=== PATIENT | male | born 1995 | race Caucasian/White ===

== ENCOUNTER 2020-10-01 15:30 | Outpatient (RCR) | payer OTHER, SELFPAY ==
--- NOTE | 2020-04-03 11:02 | ST.OPIE ---
Visit Care Team Role Provider Type Seth Landin MD Attending Provider Non-Staff Primary Care Provider Referring Provider Specialty: Medical Address: [address] [place] [address], [place], [address] Email: Speech-Language Pathology Initial Evaluation SENIOR OFFICER Voice Resonance Evaluation Start: 03/27/20 16:10 Freq: Status: Active Protocol: Document 03/27/20 16:10 IPNA (Rec: 03/27/20 16:11 PINA [id number]) Voice and Resonance Assessment Session Time Visit Start Time 14:30 Visit Stop Time 15:40 Total Visit Minutes 70 Visit Information Visit Number Initial Evaluation Plan of Care Dates 03/27/20 - 06/25/20 Insurance Information Prime Next Note Type Next Note Type Treatment Note Referral Referring Physician Dr. Seth Landin Reason for Referral Laryngospasm Setting Setting Outpatient Care Patient History General Information The pt is a 24-yr-old male with c/o laryngospasm symptoms with associated strong coughing episodes, which have resulted in restrictions from job duties. 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 The pt was diagnosed with acid reflux ~1 yr ago. Since then he has followed a strict GERD diet and recommended lifestyle modifications. He has been seen multiple times by GI, with ~5 endoscopies administered for evaluation and ongoing assessment after various medication trials. He underwent ENT evaluation 2 yrs ago with no abnormal findings . He is currently waiting for referral from GI for re- evaluation with ENT d/t ongoing symptoms. He also intends to have a pH study completed for GERD and has an appointment tomorrow with an Sod Cutter for evaluation of allergies that may contribute to laryngospasm triggers. The pt stated that prior to GERD dx, he drank frequently and chewed tobacco. He has since stopped all tobacco, rarely consumes alcohol, and has lost >20 lbs of weight. He has noticed improvement in but not elimination of symptoms. The pt works out 5-6 days/wk and only occasionally has experienced laryngospasm during high intensity exercise . Other episodes have occurred while brushing his teeth, after eating pizza (during which he was suddenly aphonic but could breathe), and 3x during the night in the last week which caused him to awaken and he was unable to breathe. He estimated that 80% of the spasms occur while he is in his home. In response, the pt drinks water, which alleviates the symptoms. He has never passed out d/t laryngospasm. Hearing Hearing Level Normal Vision Vision Status Not Impaired [place] Langauge Language(s) Spoken in the Home [place] Occupational Status Occupation Status [place] docking pilot Previous Therapy Previous Speech-Language Therapy No Oral Motor Assessment Source: [place] [employer] ([employer]). Oral-Motor Eval Completed No Subjective Subjective The pt arrived on time and provided case history. - Laryngeal Performance Breath Support Breath Support At Rest Thoracic,Clavicular Breath Support Conversation Thoracic,Clavicular Breath Support Conversation Comment Pt reported difficulty filling lungs with deep breath. Feels it's shallow Speaks on Room Air Yes Postural Alignment Stance Balanced Voice Pitch Range Norms: Women (100-300 Hz) Men (70-250 Hz) Fundamental Frequency Norms: Women (Mean: 225 Hz; Range: 155-334 Hz) Men ( Mean: 128 Hz; Range: 85-196 Hz) Voice Pitch Normal Voice Loudness Normal Voice Phonatory-based Quality Normal Paradoxical Vocal Fold Movement Possible Indications Resonance Nasal Resonance Normal Oral Resonance Normal Therapeutic Techniques Therapy Tactics Breath Support Other Tactics Extensive education was provided to the pt RE a&p of laryngeal, pharyngeal and associated structures involved in swallow and breathing; potential impact of frequent coughing/throat clearing and GERD on laryngeal tissue, including VFs and voice; and laryngospasm definition, symptoms, potential triggers, and relaxation and deep breathing techniques to manage /resolve. The pt asked many good questions. Had concerns of feeling unable to take deep diaphragmatic breaths. Training with modeling provided. Initially in pt attempts to perform, clavicular breathing was evident, which slowly shifted to thoracic and finally initial evidence of diaphragm involvement was observed; needs reinforcement. Additional training provided in alternative cough techniques including hard swallow and silent cough. The pt returned demonstration and verbalized understanding. Pt instructed to perform hard swallow at first indication of tickle in throat in order to prevent coughing which may lead to laryngospasm. This should be used in conjunction with deep breathing technique to prevent laryngospasm when possible. It was emphasized, however, that if the pt experiences foreign object in airway, he absolutely should cough as strongly as necessary to expel object and prevent choking or aspiration. He verbalized understanding and agreement. All instructions to techniques were provided in writing for aid in home practice. Findings Findings Mild-Moderate Impairment Voice/Resonance Assessment Assessment The pt's complaints and reported symptoms are consistent with laryngospasm with unconfirmed trigger(s) which could include allergies, effects of GERD/LPR, or other cause of laryngeal hypersensitivity. Will continue to treat with relaxation, breathing and cough techniques and ongoing assessment to, hopefully, determine triggers. Prognosis Rehabilitation Potential Excellent - Recommendations Treatment Recommended Yes Treatment Frequency/Duration 6 visits over 2-3 mos Placement Recommendation Home Short Term Goals 1. The pt will perform alternative cough techniques with min cues to prevent or minimize cough production, thereby reducing risk of laryngospasm. 2. The pt will perform diaphragmatic breathing techniques with min cues to reduce frequency, duration and intensity of laryngospasm. Digital Composer Goals 1. Using alternative cough, laryngeal relaxation, and breathing techniques independently as needed, the pt will reduce laryngospasm to no more than 2 mild episodes over a 1-month period, as measured by pt report and clinician judgment, to improve general health and quality of life and to return pt to normal employment duties. Patient/Caregiver Education Patient/Family Education Described results of evaluation,Patient Understanding,Patient Needs More Info
--- NOTE | 2020-04-15 14:26 | ST.OPTN ---
Visit Care Team Role Provider Type Seth Landin MD Attending Provider Non-Staff Primary Care Provider Referring Provider Address: [address] [place] [address], [id number] [employer] ARMAMENT Treatment Note AIRCRAFT MECHANIC ARMAMENT Treatment Note Start: 03/27/20 16:10 Freq: Status: Active Protocol: Document 04/15/20 14:05 PINA (Rec: 04/15/20 14:05 PINA [id number]) Speech Pathology Treatment Note Session Time Visit Start Time 12:30 Visit Stop Time 13:25 Total Visit Minutes 55 Visit Information Visit Number 1 Plan of Care Dates 03/27/20 - 06/25/20 Insurance Information [facility] Setting Treatment Setting Outpatient Care Visit Type Note Type Treatment Note Next Note Type Next Note Type Treatment Note General Information General Information The pt is a 24-yr-old male with c/o laryngospasm symptoms with associated strong coughing episodes, which have resulted in restrictions from job duties. 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 The pt was diagnosed with acid reflux ~1 yr ago. Since then he has followed a strict GERD diet and recommended lifestyle modifications. He has been seen multiple times by GI, with ~5 endoscopies administered for evaluation and ongoing assessment after various medication trials. He underwent ENT evaluation 2 yrs ago with no abnormal findings . He is currently waiting for referral from GI for re- evaluation with ENT d/t ongoing symptoms. He also intends to have a pH study completed for GERD and has an appointment tomorrow with an Hogshead Cooper for evaluation of allergies that may contribute to laryngospasm triggers. The pt stated that prior to GERD dx, he drank frequently and chewed tobacco. He has since stopped all tobacco, rarely consumes alcohol, and has lost >20 lbs of weight. He has noticed improvement in but not elimination of symptoms. The pt works out 5-6 days/wk and only occasionally has experienced laryngospasm during high intensity exercise . Other episodes have occurred while brushing his teeth, after eating pizza (during which he was suddenly aphonic but could breathe), and 3x during the night in the last week which caused him to awaken and he was unable to breathe. He estimated that 80% of the spasms occur while he is in his home. In response, the pt drinks water, which alleviates the symptoms. He has never passed out d/t laryngospasm. Subjective Observations/Patient Presentation The pt arrived on time. He reported being very busy with multiple medical appts since last visit. Initially practiced exercises for laryngospasm but only for a few days. He was seen by Hogshead Cooper and ENT. Allergy testing revealed allergy to grass only; no food allergies. The pt reported that Hogshead Cooper did not suspect high likelihood of GERD but speculated possible lasting effect of laryngopharyngeal hypersensitivity from previous hx of GERD. Laryngoscopy by ENT was unremarkable with no damage to laryngeal structures or tissue to account for symptoms. CT of sinus was recommended, however, and is pending scheduling. The pt also attempted pH testing and esophageal manometry, but d/t miscommunication about preperatory needs, the appt was canceled and the pt is awaiting rescheduling. The pt reported 1 laryngospasm since last seen; happened during the night and caused him to awaken with difficulty breathing. He also reported a hoarse voice that sometimes breaks, like a stutter but with my voice since having attended a sporting event republican with friends during which he talked a lot and was loud and also consumed a moderate amount of alcohol ( uncarbonated). The pt continues to otherwise follow a strict GERD diet. Chief Complaint(s) Other Additional Areas of Concern Laryngospasm Rehab Expectation/Goals: Patient Goals Eliminate episodes and return to flying duties Patient Knowledge/Awareness of AIRCRAFT MECHANIC ARMAMENT Role Good in Treatment Objective Short Term Goals 1. The pt will perform alternative cough techniques with min cues to prevent or minimize cough production, thereby reducing risk of laryngospasm. 2. The pt will perform diaphragmatic breathing techniques with min cues to reduce frequency, duration and intensity of laryngospasm. Correction Goals 1. Using alternative cough, laryngeal relaxation, and breathing techniques independently as needed, the pt will reduce laryngospasm to no more than 2 mild episodes over a 1-month period, as measured by pt report and clinician judgment, to improve general health and quality of life and to return pt to normal employment duties. Treatment Activities Consulted with pt RE the many medical appts and the few laryngospasm episodes he has had since last seen. The pt expressed frustration at attending various medical appts when he is asymptomatic and asked if he should attempt to elicit GERD symptoms prior next GI appt. AIRCRAFT MECHANIC ARMAMENT expressed understanding of frustration and recommended the pt consult with GI office regarding this question. Alternatively, recommended the pt reintroduce foods/liquids into diet in a controlled manner, taking note of any symptoms that arise after. Discussed keeping a food journal in order to assist him in making educated decisions about if/when to partake of foods/liquids that might contribute to his problems. Also discussed consideration of sleep apnea vs laryngospasm at night, either of which may result in the pt feeling difficulty breathing. Recommended the pt use a humidifier to reduce inhalation of dry air as possible laryngospasm trigger during the night when the pt breathes through his mouth. Pt reported having tried this without relief of symptoms. Continued training of diaphragmatic and deep breathing techniques. Pt is improving but continues to exhibit mild uncoordination of diaphragmatic breathing. Recommended hydration, vocal rest and controlled VF adduction exercises to overcome hoarseness of voice that appears to have resulted from overuse/misuse of the voice, although hoarseness was not perceived by the AIRCRAFT MECHANIC ARMAMENT. Pt verbalized understanding. Assessment Patient Response to Treatment Fair Rehab Potential Good Impairments Identified Vocal Hygiene,Other Additional Impairments Identified Larynsospasm Progress Towards Goals Slow Progress Assessment of Overall Progress Improving Assessment of Improvement The pt provided good information and asked good questions throughout the session, reflecting improved understanding of a/p of related body structures, nature of and response to laryngospasm. He continues with some mild uncoordination in performing diaphragmatic breathing but is improving. Reduced episodes of laryngospasm have occurred since last visit. Reviewed with Patient Goals,Progress Being Made,Home Exercise Program Patient/Caregiver Understanding Good Plan Therapeutic Contents Client Education,Home Exercise Program,Other Additional Areas of Treatment Laryngospasm Provided Patient/Caregiver Instruction Home Exercise Program,Plan of Care,Questions/Concerns Therapy Recommendations Continue with Current Program
--- NOTE | 2020-04-24 16:42 | ST.OPTN ---
Visit Care Team Role Provider Type Seth Landin MD Attending Provider Non-Staff Primary Care Provider Referring Provider Address[facility] [place], [address] CORE WORKER Treatment Note CORE WORKER Treatment Note Start: 03/27/20 16:10 Freq: Status: Active Protocol: Document 04/24/20 14:28 PINA (Rec: 04/24/20 14:30 PINA [id number]) Speech Pathology Treatment Note Session Time Visit Start Time 12:30 Visit Stop Time 13:25 Total Visit Minutes 55 Visit Information Visit Number 2 Plan of Care Dates 03/27/20 - 06/25/20 [facility] Setting Treatment Setting Outpatient Care Visit Type Note Type Treatment Note Next Note Type Next Note Type Treatment Note General Information General Information The pt is a 24-yr-old male with c/o laryngospasm symptoms with associated strong coughing episodes, which have resulted in restrictions from job duties. 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 The pt was diagnosed with acid reflux ~1 yr ago. Since then he has followed a strict GERD diet and recommended lifestyle modifications. He has been seen multiple times by GI, with ~5 endoscopies administered for evaluation and ongoing assessment after various medication trials. He underwent ENT evaluation 2 yrs ago with no abnormal findings . He is currently waiting for referral from GI for re- evaluation with ENT d/t ongoing symptoms. He also intends to have a pH study completed for GERD and has an appointment tomorrow with an Counter Helper for evaluation of allergies that may contribute to laryngospasm triggers. The pt stated that prior to GERD dx, he drank frequently and chewed tobacco. He has since stopped all tobacco, rarely consumes alcohol, and has lost >20 lbs of weight. He has noticed improvement in but not elimination of symptoms. The pt works out 5-6 days/wk and only occasionally has experienced laryngospasm during high intensity exercise . Other episodes have occurred while brushing his teeth, after eating pizza (during which he was suddenly aphonic but could breathe), and 3x during the night in the last week which caused him to awaken and he was unable to breathe. He estimated that 80% of the spasms occur while he is in his home. In response, the pt drinks water, which alleviates the symptoms. He has never passed out d/t laryngospasm. Subjective Observations/Patient Presentation The pt arrived on time. He reported no laryngospasms since last visit. Was able to prevent 2 spasms by engaging hard swallow at first sense of symptoms. Since last visit, the pt obtained CT of sinuses. Radiologist indicated enlarged sinus cavities. Pt is scheduled to f/u with Dr. Garnett, ENT, on Wednesday to review and discuss. Chief Complaint(s) Other Additional Areas of Concern Laryngospasm Rehab Expectation/Goals: Patient Goals Eliminate episodes and return to flying duties Patient Knowledge/Awareness of CORE WORKER Role Good in Treatment Objective Short Term Goals 1. The pt will perform alternative cough techniques with min cues to prevent or minimize cough production, thereby reducing risk of laryngospasm. 2. The pt will perform diaphragmatic breathing techniques with min cues to reduce frequency, duration and intensity of laryngospasm. Longterm Goals 1. Using alternative cough, laryngeal relaxation, and breathing techniques independently as needed, the pt will reduce laryngospasm to no more than 2 mild episodes over a 1-month period, as measured by pt report and clinician judgment, to improve general health and quality of life and to return pt to normal employment duties. Treatment Activities Continued education and training in breathing and swallowing techniques to reduce laryngospasm. Pt demonstrated independence and showing carryover to functional environment. Pt had questions RE potential impact of diet/nutrition/hydration on symptoms and/or on other problems (e.g., post nasal drip, GERD) that may be increasing laryngeal or pharyngeal sensitivity and contributing to laryngospasm. Education and resources for further education were provided and questions were answered to the best of the CORE WORKER's ability/scope of practice. Assessment Patient Response to Treatment Good Rehab Potential Good Impairments Identified Vocal Hygiene,Other Additional Impairments Identified Larynsospasm Progress Towards Goals Slow Progress Assessment of Overall Progress Improving Assessment of Improvement The pt is progressing toward goals, having avoided 2 laryngospasms since last visit by using techniques trained in therapy. He continues to ask good questions and demonstrate motivation to find causes of his symptoms to improve his overall health. Will f/u again next week after he has met with Dr. Garnett. Will address any new information that may impact therapy at that time. Anticipate reducing frequency of visits soon to one visit every 2-3 wks as the pt becomes increasingly independent in laryngospasm management. Reviewed with Patient Goals,Progress Being Made,Home Exercise Program Patient/Caregiver Understanding Good Plan Therapeutic Contents Client Education,Home Exercise Program,Other Additional Areas of Treatment Laryngospasm Provided Patient/Caregiver Instruction Home Exercise Program,Plan of Care,Questions/Concerns Therapy Recommendations Continue with Current Program
--- NOTE | 2020-04-29 11:31 | ST.OPTN ---
Visit Care Team Role Provider Type Seth Landin MD Attending Provider Non-Staff Primary Care Provider Referring Provider Address: [facility] [place], [address] EXPERIMENTAL MECHANIC Treatment Note EXPERIMENTAL MECHANIC Treatment Note Start: 03/27/20 16:10 Freq: Status: Active Protocol: Document 04/29/20 10:28 PINA (Rec: 04/29/20 11:30 PINA [id number]) Speech Pathology Treatment Note Session Time Visit Start Time 10:30 Visit Stop Time 11:15 Total Visit Minutes 45 Visit Information Visit Number 3 Plan of Care Dates 03/27/20 - 06/25/20 Insurance Information [facility] Setting Treatment Setting Outpatient Care Visit Type Note Type Treatment Note Next Note Type Next Note Type Treatment Note General Information General Information The pt is a 24-yr-old male with c/o laryngospasm symptoms with associated strong coughing episodes, which have resulted in restrictions from job duties. 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 The pt was diagnosed with acid reflux ~1 yr ago. Since then he has followed a strict GERD diet and recommended lifestyle modifications. He has been seen multiple times by GI, with ~5 endoscopies administered for evaluation and ongoing assessment after various medication trials. He underwent ENT evaluation 2 yrs ago with no abnormal findings . He is currently waiting for referral from GI for re- evaluation with ENT d/t ongoing symptoms. He also intends to have a pH study completed for GERD and has an appointment tomorrow with an Bead Supervisor for evaluation of allergies that may contribute to laryngospasm triggers. The pt stated that prior to GERD dx, he drank frequently and chewed tobacco. He has since stopped all tobacco, rarely consumes alcohol, and has lost >20 lbs of weight. He has noticed improvement in but not elimination of symptoms. The pt works out 5-6 days/wk and only occasionally has experienced laryngospasm during high intensity exercise . Other episodes have occurred while brushing his teeth, after eating pizza (during which he was suddenly aphonic but could breathe), and 3x during the night in the last week which caused him to awaken and he was unable to breathe. He estimated that 80% of the spasms occur while he is in his home. In response, the pt drinks water, which alleviates the symptoms. He has never passed out d/t laryngospasm. Subjective Observations/Patient Presentation The pt arrived on time and reported feeling a laryngospasm coming on while driving to this appt. He managed it by drinking water. It dicipated and did not recur . The pt saw Dr. Garnett ENT, last Wednesday for review of CT sinus scan. Dr. Garnett verified sinuses are a bit large but not problematic, per pt report. No changes were made to his POC. The pt has been reintroducing foods and carbonated beverages without effect. He noted that he has not been running or participating in high intensity exercise d/t hx of laryngospasm triggering. He expressed desire to complete a triathlon this year if possible. Chief Complaint(s) Other Additional Areas of Concern Laryngospasm Rehab Expectation/Goals: Patient Goals Eliminate episodes and return to flying duties Patient Knowledge/Awareness of EXPERIMENTAL MECHANIC Role Good in Treatment Objective Short Term Goals 1. The pt will perform alternative cough techniques with min cues to prevent or minimize cough production, thereby reducing risk of laryngospasm. 2. The pt will perform diaphragmatic breathing techniques with min cues to reduce frequency, duration and intensity of laryngospasm. Php Software Engineer Goals 1. Using alternative cough, laryngeal relaxation, and breathing techniques independently as needed, the pt will reduce laryngospasm to no more than 2 mild episodes over a 1-month period, as measured by pt report and clinician judgment, to improve general health and quality of life and to return pt to normal employment duties. Treatment Activities Education and training provided RE managing laryngospasm during exercise. Discussed importance of controlled breathing during exercise, preferrably inhalations through nose if possible or use of face covering to warm and moisten cold dry air to prevent trigger. Trained pt in rhythmic breathing to accomplish this. Pt verbalized understanding and agreed to trial with with gradual reintroduction to exercise this week. Discussed POC to include reintroduction of potential laryngospasm triggers. Agreed to have pt run on treadmill at next visit under EXPERIMENTAL MECHANIC supervision and guidance of spasm management as needed. Will plan for outdoor run within 2-3 visits to increase trigger exposure potential with outdoor air. Pt in agreement. Assessment Patient Response to Treatment Good Rehab Potential Good Impairments Identified Vocal Hygiene,Other Additional Impairments Identified Larynsospasm Progress Towards Goals Slow Progress Assessment of Overall Progress Improving Assessment of Improvement The pt is progressing toward goals, having avoided another laryngospasms since last visit by using techniques trained in therapy. He was receptive to education and training today, as well as to POC to increase exposure to potential laryngospasm triggers during exercise in order to return pt to desired exercise and activities for general health and [place] fitness requirements. Reviewed with Patient Goals,Progress Being Made,Home Exercise Program Patient/Caregiver Understanding Good Plan Amount of Therapy Recommended 1-2 Months Frequency of Treatment Once a Week Length of Session 45 Minutes Therapeutic Contents Client Education,Home Exercise Program,Other Additional Areas of Treatment Laryngospasm Provided Patient/Caregiver Instruction Home Exercise Program,Plan of Care,Questions/Concerns Therapy Recommendations Continue with Current Program
--- NOTE | 2020-05-27 16:20 | ST.OPTN ---
Visit Care Team Role Provider Type Seth Landin MD Attending Provider Non-Staff Primary Care Provider Referring Provider Address: [facility], [address] TYPE MAPPER Treatment Note TYPE MAPPER Treatment Note Start: 03/27/20 16:10 Freq: Status: Active Protocol: Document 05/27/20 17:53 PINA (Rec: 05/27/20 17:53 PINA [id number]) Speech Pathology Treatment Note Session Time Visit Start Time 10:30 Visit Stop Time 11:20 Total Visit Minutes 50 Visit Information Visit Number 4 Plan of Care Dates 03/27/20 - 06/25/[address] [facility] Setting Treatment Setting Outpatient Care Visit Type Note Type Treatment Note Next Note Type Next Note Type Treatment Note General Information General Information The pt is a 24-yr-old male with c/o laryngospasm symptoms with associated strong coughing episodes, which have resulted in restrictions from job duties. 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 The pt was diagnosed with acid reflux ~1 yr ago. Since then he has followed a strict GERD diet and recommended lifestyle modifications. He has been seen multiple times by GI, with ~5 endoscopies administered for evaluation and ongoing assessment after various medication trials. He underwent ENT evaluation 2 yrs ago with no abnormal findings . He is currently waiting for referral from GI for re- evaluation with ENT d/t ongoing symptoms. He also intends to have a pH study completed for GERD and has an appointment tomorrow with an Equipment Engineer for evaluation of allergies that may contribute to laryngospasm triggers. The pt stated that prior to GERD dx, he drank frequently and chewed tobacco. He has since stopped all tobacco, rarely consumes alcohol, and has lost >20 lbs of weight. He has noticed improvement in but not elimination of symptoms. The pt works out 5-6 days/wk and only occasionally has experienced laryngospasm during high intensity exercise . Other episodes have occurred while brushing his teeth, after eating pizza (during which he was suddenly aphonic but could breathe), and 3x during the night in the last week which caused him to awaken and he was unable to breathe. He estimated that 80% of the spasms occur while he is in his home. In response, the pt drinks water, which alleviates the symptoms. He has never passed out d/t laryngospasm. Subjective Observations/Patient Presentation The pt arrived on time. Reported 2-3 mild laryngospasms since last session, most notably after returning inside after high intensity exercise outside in cold weather. He was able to manage by drinking water. Chief Complaint(s) Other Additional Areas of Concern Laryngospasm Rehab Expectation/Goals: Patient Goals Eliminate episodes and return to flying duties Patient Knowledge/Awareness of TYPE MAPPER Role Good in Treatment Objective Short Term Goals 1. The pt will perform alternative cough techniques with min cues to prevent or minimize cough production, thereby reducing risk of laryngospasm. 2. The pt will perform diaphragmatic breathing techniques with min cues to reduce frequency, duration and intensity of laryngospasm. Asphalt Dauber Goals 1. Using alternative cough, laryngeal relaxation, and breathing techniques independently as needed, the pt will reduce laryngospasm to no more than 2 mild episodes over a 1-month period, as measured by pt report and clinician judgment, to improve general health and quality of life and to return pt to normal employment duties. Treatment Activities Assessed pt's ability to maintain an open airway with vigorous exercise. Pt ran on treadmill at moderately fast pace while maintaining conversation for 8 min. Increased speed to max tolerance without conversation for 3 min. No symptoms evoked . Transferred running to outdoors in cold air. The pt ran around a city block at high rate of speed x2. After first lap, reported no laryngospasm but did report difficulty obtaining full deep breath. Instructed pt to sequence breaths with steps at 1:3 ratio to increase control of breath. He did so during the second lap and reported mild improvement but still unable to completely fill lungs, as if something was obstructing them. As the pt has reported this in past, recommended referral to pulmonology for evaluation. Pt was in agreement. Assessment Patient Response to Treatment Good Rehab Potential Good Impairments Identified Vocal Hygiene,Other Additional Impairments Identified Larynsospasm Progress Towards Goals Slow Progress Assessment of Overall Progress Improving Assessment of Improvement Pt is experiencing only occasional laryngospasms and managing them well by drinking fluids. No laryngospasm elicited with high intensity exercise both inside in warm air and outside in cold air during today's session. However, the pt continues to c /o reduced ability to take complete deep breaths, as if there if an obstruction, which impeded his running. Recommend evaluation by Pulmonology. Pt in agreement. TYPE MAPPER will fax request for orders to MD. Reviewed with Patient Goals,Progress Being Made,Home Exercise Program Patient/Caregiver Understanding Good Plan Amount of Therapy Recommended 1-2 Months Frequency of Treatment Once a Week Length of Session 45 Minutes Therapeutic Contents Client Education,Home Exercise Program,Other Additional Areas of Treatment Laryngospasm Provided Patient/Caregiver Instruction Home Exercise Program,Plan of Care,Questions/Concerns Therapy Recommendations Continue with Current Program Suggested Referral Pulmonology
--- NOTE | 2020-08-28 18:50 | ST.OPTN ---
Visit Care Team Role Provider Type Seth Landin MD Attending Provider Non-Staff Primary Care Provider Referring Provider Address: [address] [place], [place] [address], [place], [address] ENGINEERING PATTERNMAKER Treatment Note ENGINEERING PATTERNMAKER Treatment Note Start: 03/27/20 16:10 Freq: Status: Active Protocol: Document 08/28/20 19:45 PINA (Rec: 08/28/20 19:46 PINA [id number]) Speech Pathology Treatment Note Session Time Visit Start Time 10:30 Visit Stop Time 11:10 Total Visit Minutes 40 Visit Information Visit Number 5 Plan of Care Dates 08/28/20 - 11/28/20 Insurance Information [facility] Setting Treatment Setting Outpatient Care Visit Type Note Type Treatment Note Next Note Type Next Note Type Treatment Note General Information General Information The pt is a 24-yr-old male with c/o laryngospasm symptoms with associated strong coughing episodes, which have resulted in restrictions from job duties. 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 The pt was diagnosed with acid reflux ~1 yr ago. Since then he has followed a strict GERD diet and recommended lifestyle modifications. He has been seen multiple times by GI, with ~5 endoscopies administered for evaluation and ongoing assessment after various medication trials. He underwent ENT evaluation 2 yrs ago with no abnormal findings . He is currently waiting for referral from GI for re- evaluation with ENT d/t ongoing symptoms. He also intends to have a pH study completed for GERD and has an appointment tomorrow with an All Source Analyst for evaluation of allergies that may contribute to laryngospasm triggers. The pt stated that prior to GERD dx, he drank frequently and chewed tobacco. He has since stopped all tobacco, rarely consumes alcohol, and has lost >20 lbs of weight. He has noticed improvement in but not elimination of symptoms. The pt works out 5-6 days/wk and only occasionally has experienced laryngospasm during high intensity exercise . Other episodes have occurred while brushing his teeth, after eating pizza (during which he was suddenly aphonic but could breathe), and 3x during the night in the last week which caused him to awaken and he was unable to breathe. He estimated that 80% of the spasms occur while he is in his home. In response, the pt drinks water, which alleviates the symptoms. He has never passed out d/t laryngospasm. Subjective Observations/Patient Presentation The returns with new insurance authorization to continue skilled intervention. Since last seen, he has undergone 24 -hr pH assessment (awaiting results) and manometry (normal findings). He reported reduced laryngospasm not yet fully eliminated. Questions if GERD could contribute to trigger. He is generally able to manage symptoms with eating food. He reported heartburn/ GERD symptoms interfered with his ability to complete a 5k race. Chief Complaint(s) Other Additional Areas of Concern Laryngospasm Rehab Expectation/Goals: Patient Goals Eliminate episodes Patient Knowledge/Awareness of ENGINEERING PATTERNMAKER Role Excellent in Treatment Patient/Caregiver Compliance with Home Excellent Exercise Program Objective Short Term Goals 1. The pt will perform alternative cough techniques with min cues to prevent or minimize cough production, thereby reducing risk of laryngospasm. 2. The pt will perform diaphragmatic breathing techniques with min cues to reduce frequency, duration and intensity of laryngospasm. Watch Assembly Instructor Goals 1. Using alternative cough, laryngeal relaxation, and breathing techniques independently as needed, the pt will reduce laryngospasm to no more than 2 mild episodes over a 1-month period, as measured by pt report and clinician judgment, to improve general health and quality of life and to return pt to normal employment duties. Treatment Activities Collaborated with pt RE updated case history. Education provided RE potential impact of GERD/LPR on laryngospasm possibly d/t irritation of pharyngeal and/ or laryngeal tissue. Discussed POC. Pt expressed desire to assess symptoms during exercise with treatment as indicated if symptoms occur. ENGINEERING PATTERNMAKER in agreement. Assessment Patient Response to Treatment Good Rehab Potential Good Impairments Identified Vocal Hygiene,Other Progress Towards Goals Good Progress Assessment of Overall Progress Improving Assessment of Improvement The pt's symptoms are improving in frequency, duration and severity. He is now able to sense onset and usually is able to prevent laryngospasm or at least minimize episodes. He continues to have concerns while exercising and expressed concern of an inability to take complete breaths, feeling that inhalation is somehow limited. Recommend continuing skilled intervention targeting eliciting/managing symptoms during exercise. Reviewed with Patient Goals,Progress Being Made,Home Exercise Program Plan Amount of Therapy Recommended 1-2 Months Comment 1 visit every 2-3 wks Length of Session 45 Minutes Therapeutic Contents Client Education,Home Exercise Program,Other Additional Areas of Treatment Laryngospasm Provided Patient/Caregiver Instruction Home Exercise Program,Plan of Care,Questions/Concerns Therapy Recommendations Continue with Current Program
--- NOTE | 2020-10-01 18:55 | ST.OPTN ---
Visit Care Team Role Provider Type Seth Landin MD Attending Provider Non-Staff Primary Care Provider Referring Provider Address: [address] [place], [place] [address], [place], [address] OPTICIAN APPRENTICE Treatment Note OPTICIAN APPRENTICE Treatment Note Start: 03/27/20 16:10 Freq: Status: Active Protocol: Document 10/01/20 18:52 PINA (Rec: 10/01/20 18:53 PINA [email or web address]) Speech Pathology Treatment Note Session Time Visit Start Time 15:30 Visit Stop Time 16:40 Total Visit Minutes 70 Visit Information Visit Number 6 Plan of Care Dates 08/28/20 - 11/28/[address] [facility] Setting Treatment Setting Outpatient Care Visit Type Note Type Treatment Note Next Note Type Next Note Type Treatment Note General Information General Information The pt is a 24-yr-old male with c/o laryngospasm symptoms with associated strong coughing episodes, which have resulted in restrictions from job duties. 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 The pt was diagnosed with acid reflux ~1 yr ago. Since then he has followed a strict GERD diet and recommended lifestyle modifications. He has been seen multiple times by GI, with ~5 endoscopies administered for evaluation and ongoing assessment after various medication trials. He underwent ENT evaluation 2 yrs ago with no abnormal findings . He is currently waiting for referral from GI for re- evaluation with ENT d/t ongoing symptoms. He also intends to have a pH study completed for GERD and has an appointment tomorrow with an Rouge Sifter for evaluation of allergies that may contribute to laryngospasm triggers. The pt stated that prior to GERD dx, he drank frequently and chewed tobacco. He has since stopped all tobacco, rarely consumes alcohol, and has lost >20 lbs of weight. He has noticed improvement in but not elimination of symptoms. The pt works out 5-6 days/wk and only occasionally has experienced laryngospasm during high intensity exercise . Other episodes have occurred while brushing his teeth, after eating pizza (during which he was suddenly aphonic but could breathe), and 3x during the night in the last week which caused him to awaken and he was unable to breathe. He estimated that 80% of the spasms occur while he is in his home. In response, the pt drinks water, which alleviates the symptoms. He has never passed out d/t laryngospasm. Subjective Observations/Patient Presentation Pt arrived on time. No new complaints. Continues with occasional mild laryngospasms, managed by eating food. Swallowing liquids no longer is effective. Pt feels diaphragmatic breathing is inconsistently effective. Suspects trigger is related to GERD, as symptoms typically appear after consumption, or to breathing cold air, as they sometimes appeared in winter when pt was exercising outdoors. Chief Complaint(s) Other Additional Areas of Concern Laryngospasm Rehab Expectation/Goals: Patient Goals Eliminate episodes Patient Knowledge/Awareness of OPTICIAN APPRENTICE Role Excellent in Treatment Patient/Caregiver Compliance with Home Excellent Exercise Program Objective Short Term Goals 1. The pt will perform alternative cough techniques with min cues to prevent or minimize cough production, thereby reducing risk of laryngospasm. 2. The pt will perform diaphragmatic breathing techniques with min cues to reduce frequency, duration and intensity of laryngospasm. [facility] Goals 1. Using alternative cough, laryngeal relaxation, and breathing techniques independently as needed, the pt will reduce laryngospasm to no more than 2 mild episodes over a 1-month period, as measured by pt report and clinician judgment, to improve general health and quality of life and to return pt to normal employment duties. Treatment Activities Attempted to stimulate laryngospasm trigger with outdoor run. The pt ran for ~ 10 min at moderate to max effort, then continued to walk with OPTICIAN APPRENTICE for ~30 min. No symptoms were elicited. Education and feedback was provided RE the pt's concerns and questions, as listed above . In discussions of diaphragmatic breathing, the pt informed that he almost always breathes orally vs nasally. Education provided positve and negative consequences of nasal vs oral breathing, respectively, including moistening/drying of the airway, which may help alleviate/contribute to symptoms, again respectively. The pt also informed that he frequently feels stress and anxiety, often feeling a sense of fight or flight. Recommended the pt participate in a relaxed, diaphragmatic breathing program, such as Buteyko breathing, that targets nasal breathing and parasympathetic nervous system . The pt was in agreement and has a resource outside of this clinic that he verbalized intention of using. Agreed to f/u in 3-4 wks after the pt has initiated this program. Assessment Patient Response to Treatment Good Rehab Potential Good Impairments Identified Vocal Hygiene,Other Progress Towards Goals Slow Progress Assessment of Overall Progress Improving Assessment of Improvement The pt is making slow progress toward elimination of laryngospasm, and good progress toward managing symptoms when they occur. Based on the pt's reports of timing of symptoms in relation to oral intake and GERD symptoms, as well as habitual mouth breathing, suspect that laryngospasm trigger could be related to these factors. Presence of overall stress and fight or flight responses likely contributes to tension in the larynx that may increase the trigger response leading to laryngospasm. Recommend the pt participate in relaxation and diaphragmatic breathing training (e.g., meditation, Buteyko breathing method). He is agreeable to this. Will f/u in 3-4 wks after he has been able to start such a program. Reviewed with Patient Goals,Progress Being Made,Home Exercise Program Plan Amount of Therapy Recommended 1-2 Months Comment 1 visit every 2-3 wks Length of Session 45 Minutes Therapeutic Contents Client Education,Home Exercise Program,Other Additional Areas of Treatment Laryngospasm Provided Patient/Caregiver Instruction Home Exercise Program,Plan of Care,Questions/Concerns Therapy Recommendations Continue with Current Program
--- NOTE | 2021-02-05 13:59 | ST.OPDS ---
Visit Care Team Role Provider Type Seth Landin MD Attending Provider Non-Staff Primary Care Provider Referring Provider Address: [facility] [place], [address] DIRECTOR OF NURSING Treatment Note DIRECTOR OF NURSING Treatment Note Start: 03/27/20 16:10 Freq: Status: Active Protocol: Document 02/05/21 13:56 PINA (Rec: 02/05/21 13:59 PINA [id number]) Speech Pathology Treatment Note Visit Information Plan of Care Dates 08/28/20 - 11/28/20 Insurance Information [facility] Setting Treatment Setting Outpatient Care Visit Type Note Type Discharge Summary General Information General Information The pt is a 24-yr-old male with c/o laryngospasm symptoms with associated strong coughing episodes, which have resulted in restrictions from job duties. 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 The pt was diagnosed with acid reflux ~1 yr ago. Since then he has followed a strict GERD diet and recommended lifestyle modifications. He has been seen multiple times by GI, with ~5 endoscopies administered for evaluation and ongoing assessment after various medication trials. He underwent ENT evaluation 2 yrs ago with no abnormal findings . He is currently waiting for referral from GI for re- evaluation with ENT d/t ongoing symptoms. He also intends to have a pH study completed for GERD and has an appointment tomorrow with an Director Security Risk Management for evaluation of allergies that may contribute to laryngospasm triggers. The pt stated that prior to GERD dx, he drank frequently and chewed tobacco. He has since stopped all tobacco, rarely consumes alcohol, and has lost >20 lbs of weight. He has noticed improvement in but not elimination of symptoms. The pt works out 5-6 days/wk and only occasionally has experienced laryngospasm during high intensity exercise . Other episodes have occurred while brushing his teeth, after eating pizza (during which he was suddenly aphonic but could breathe), and 3x during the night in the last week which caused him to awaken and he was unable to breathe. He estimated that 80% of the spasms occur while he is in his home. In response, the pt drinks water, which alleviates the symptoms. He has never passed out d/t laryngospasm. Subjective Observations/Patient Presentation The pt was last seen October 01, 2020, at which time his laryngospasm symptoms had diminished. POC dates have . The pt is discharged from skilled intervention at this time. Chief Complaint(s) Other Additional Areas of Concern Laryngospasm Plan Therapy Recommendations Discharge from Speech Therapy
== END 2021-04-22 09:35 ==
LOC: SP 15:30
PROVIDERS: PCP Student in an Organized Health Care Education/Training Program; Referring Provider Student in an Organized Health Care Education/Training Program; Visit Provider Student in an Organized Health Care Education/Training Program
DX: J38.5 Laryngeal spasm (principal)
CPT/HCPCS: 92507; 92524